=== PATIENT | male | born 1980 | race Caucasian/White ===

== ENCOUNTER → 2018-01-14 | Outpatient (CLI) | payer BC | LOC: RAD 08:13 | PROVIDERS: ATTEND Family Medicine | DX: M79.662 Pain in left lower leg (principal) | CPT/HCPCS: 93971 ==

== ENCOUNTER → 2018-08-30 | Outpatient (CLI) | payer BC | LOC: MRI 09:28 | PROVIDERS: ATTEND Family Medicine | DX: S39.012A Strain of muscle, fascia and tendon of lower back, initial encounter (principal); M51.26 Other intervertebral disc displacement, lumbar region ==

== ENCOUNTER 2018-11-15 17:15 | Emergency (ER) | payer BC ==
[~2018-11-15] VITALS: Ht 180.3 cm; Wt 138.8 kg
--- OUTSIDE RECORDS SUMMARY | 2018-11-15 17:18 | XMS REPORT ---
Author Author [facility] Address Unknown Phone Unavailable Care Team Providers Care Traffic Signal Mechanic Name Role Phone Unavailable Unavailable Problems This patient has no known problems. Allergies, Adverse Reactions, Alerts This patient has no known allergies or adverse reactions. Medications This patient has no known medications. Encounters Start Date/Time End Date/Time Encounter Type Admission Type Attending [facility] Facility Care Department Encounter ID 2018-08-31 17:17:05 Outpatient [id number]
[2018-11-15] MEDS ORDERED: SODIUM CHLORIDE 0.9% 1000ML 1,000 ML IV STA (17:48)
[2018-11-15 17:59] LABS: BASOPHILS # (AUTO) 0.1 (0.0-0.1); BASOPHILS % 0.6 % (0.0-1.0); EOSINOPHILS # (AUTO) 0.1 (0.0-0.4); EOSINOPHILS % 1.8 % (0.0-6.0); HEMATOCRIT 45.8 % (38.2-49.6); HEMOGLOBIN 15.7 g/dL (14.0-18.0); LYMPHOCYTES # (AUTO) 2.2 (1.0-3.2); LYMPHOCYTES % 27.7 % (18.0-39.1); MEAN CORPUSCULAR HEMOGLOBIN 29.6 pg (28-32); MEAN CORPUSCULAR HGB CONC 34.3 g/dL (31-35); MEAN CORPUSCULAR VOLUME 86.3 fL (81-99); MONOCYTES # (AUTO) 0.6 (0.2-0.8); MONOCYTES % 7.6 % (4.4-11.3); NEUTROPHILS # (AUTO) 4.9 (2.1-6.9); PLATELET COUNT 189 x10e3/uL (140-360); RED BLOOD COUNT 5.31 x10e6/uL (4.3-5.7); RED CELL DISTRIBUTION WIDTH 12.3 % (11.7-14.4)
[2018-11-15] MEDS ORDERED: METOCLOPRAMIDE HCL 10 MG/2ML VIAL IV ONE (18:00)
[2018-11-15] MEDS ORDERED: FAMOTIDINE 20 MG/2 ML VIAL IV ONE (18:00)
[2018-11-15] MEDS ORDERED: DEXAMETHASONE SOD PHOS 10 MG/1 ML VIAL IV ONE (18:00)
[2018-11-15] MEDS ORDERED: KETOROLAC TROMETHAMINE 30 MG/ML VIAL IV ONE (18:00)
[2018-11-15 18:17] LABS: ALANINE AMINOTRANSFERASE 69 IU/L (0-55); ALBUMIN 4.2 g/dL (3.5-5.0); ALBUMIN/GLOBULIN RATIO 1.2 (0.8-2.0); ALKALINE PHOSPHATASE 79 IU/L (40-150); ANION GAP 13.1 mmol/L (8-16); BLOOD UREA NITROGEN 14 mg/dL (7-26); BUN/CREATININE RATIO 11 (6-25); CALCIUM 9.2 mg/dL (8.4-10.2); CARBON DIOXIDE 27 mmol/L (22-29); CHLORIDE 103 mmol/L (98-107); CREATINE KINASE 94 IU/L (30-200); CREATININE, SERUM 1.29 mg/dL (0.72-1.25); EST GLOMERULAR FILTRATION RATE > 60 ML/MIN (60-); GLUCOSE 142 mg/dL (74-118); POTASSIUM 4.1 mmol/L (3.5-5.1); SODIUM 139 mmol/L (136-145)
--- NOTE | 2018-11-15 18:20 | NUR ---
PT BROUGHT TO ROOM 11 VIA W/C BY BOARD ATTENDANT, AMBULATORY WITH STEADY GAIT, NO DEFICITS NOTED, BREATHING EVEN/UNLABORED, NON-DIAPHORETIC; UPDATED ON CURRENT PLAN OF CARE, INFORMED ON NEED TO OBTAIN URINE SPECIMEN, STATES "I JUST PEED BEFORE I GOT HERE", NO NEEDS VOICED AT THIS TIME; BED LOW/LOCKED, CALL LIGHT IN EASY REACH, WILL CONTINUE TO MONITOR.
--- NOTE | 2018-11-15 18:45 | Diagnostic Imaging Report ---
Exam: Head CT without contrast History: Headache Comparison studies: None Technique: Axial images were obtained from the skull base to the vertex. Coronal and sagittal images reconstructed from the axial data. Dose modulation, iterative reconstruction, and/or weight based adjustment of the mA/kV was utilized to reduce the radiation dose to as low as reasonably achievable. Radiation dose: Total DLP: 921 mGy*cm. Estimated effective dose: DLP x 0.015 Intravenous contrast: None Findings: Beam hardening and streak artifact from the skull base somewhat limit evaluation of the posterior fossa and inferior temporal lobes. Scalp: No abnormalities. Bones: No fractures, blastic or lytic lesions. Brain sulci: Appropriate for age. Ventricles: Normal in size and configuration. No hydrocephalus. Incidental anatomical variant cavum septum pellucid and cavum vergae. Extra-axial spaces: No masses, no fluid collection. Parenchyma: No abnormal densities. No masses, acute hemorrhage, acute or chronic vascular insults. Sellar/suprasellar region: No abnormalities. Craniocervical junction: Patent foramen magnum. No Chiari one malformation. Incidental findings: Subtle increased density in the basilar artery may be artifact. IMPRESSION: 1. Subtle increased density in the basilar artery may be artifactual. If there is clinical concern for basilar artery thrombosis, intracranial CTA or MRA could further evaluate. 2. Otherwise, no acute intracranial abnormalities. Signed by: Dr. Rob Muniz M.D. on 11/15/2018 6:41 PM
[2018-11-15 19:28] LABS: BILIRUBIN,URINE NEGATIVE (NEGATIVE); CLARITY,URINE CLEAR (CLEAR); COLOR,URINE YELLOW (YELLOW); KETONES,URINE NEGATIVE (NEGATIVE); LEUKOCYTE ESTERASE ,URINE NEGATIVE (NEGATIVE); NITRITE,URINE NEGATIVE (NEGATIVE); PROTEIN,URINE DIPSTICK NEGATIVE (NEGATIVE); URINE UROBILINOGEN 0.2 mg/dL (0.2 - 1)
[2018-11-15 19:39] LABS: BACTERIA,URINE FEW /HPF
--- NOTE | 2018-11-15 21:32 | Diagnostic Imaging Report ---
History:Left-sided headache, high blood pressure, rule out thrombosis. Comparison studies:No direct comparison, compared with CT brain from 11/15/2018. Technique: Axial images were obtained from the skull base to the vertex. Coronal and sagittal images reconstructed from the axial data. Multi-planar and 3-D reconstructed images were obtained. Dose modulation, iterative reconstruction, and/or weight based adjustment of the mA/kV was utilized to reduce the radiation dose to as low as reasonably achievable. Intravenous contrast: 100 cc of Isovue 370. Findings: Internal carotid arteries: No abnormality in the distal internal carotid, anterior and middle cerebral arteries. Vertebral arteries: Patent, no abnormality. Basilar artery: Mild irregularity in the caliber of the proximal basilar artery due to atherosclerosis without significant stenosis. No focal thrombosis. Posterior cerebral arteries: Patent. Anatomical variants: Anterior communicating artery :Not well visualized. Posterior communicating arteries: Not visualized. Vertebral arteries: Codominant. IMPRESSION: Mild luminal irregularity in the proximal basilar artery due to atherosclerosis without significant stenosis or focal thrombosis. Otherwise, no intracranial vascular abnormality. Signed by: Dr. Demi Borjas M.D. on 11/15/2018 9:29 PM
[2018-11-15 22:07] VITALS: BP 124/77
[2018-11-15] MEDS ORDERED: SODIUM CHLORIDE 0.9% 100 ML 100 ML ONE (22:26)
[2018-11-15] MEDS ORDERED: IOPAMIDOL 370 MG/ML 200 ML INFUS..BTL INJ ONE (22:26)
== END 2018-11-15 22:12 | disposition home or self-care (01) ==
LOC: ER 17:15
DX: G44.209 Tension-type headache, unspecified, not intractable (principal); I65.1 Occlusion and stenosis of basilar artery; I10 Essential (primary) hypertension; E78.5 Hyperlipidemia, unspecified; E66.9 Obesity, unspecified; Z68.41 Body mass index [BMI] 40.0-44.9, adult
CPT/HCPCS: 36415; 70450; 70496; 80053; 81001; 82550; 82553; 84484; 85025; 85651; 93005; 99284; J1100; J1885; J2765; J7030; Q9967

== ENCOUNTER → 2020-04-10 | Outpatient (CLI) | payer BC ==
[~2020-04-10] MED LIST: DIATRIZOATE MEGL/DIATRIZOA SOD 30 ML BTL PO ONE; IOPAMIDOL 370 MG/ML 200 ML INFUS..BTL INJ ONE; SODIUM CHLORIDE 0.9% 50ML 50 ML ONE
[2020-04-10 16:37] LABS: BLOOD UREA NITROGEN 12 mg/dL (7-26); BUN/CREATININE RATIO 10 (6-25); CREATININE, SERUM 1.17 mg/dL (0.72-1.25); EST GLOMERULAR FILTRATION RATE > 60 ML/MIN (60-)
== END ==
LOC: CT 15:33
PROVIDERS: ATTEND Surgery
DX: K62.5 Hemorrhage of anus and rectum (principal); L29.0 Pruritus ani; R10.9 Unspecified abdominal pain
CPT/HCPCS: 36415; 74177; 82565; 84520; Q9967

== ENCOUNTER → 2024-08-18 | Outpatient (REF) | payer BC ==
[~2024-08-18] MED LIST changes: +BYSTOLIC10 MG PO; -DIATRIZOATE MEGL/DIATRIZOA SOD 30 ML BTL PO ONE; +FIBER PO; +FISH OIL 1,001000 M1 PO; -IOPAMIDOL 370 MG/ML 200 ML INFUS..BTL INJ ONE; +OMEPRAZOLE40 MG PO; +ROSUVASTATIN CAL5 MG PO; -SODIUM CHLORIDE 0.9% 50ML 50 ML ONE
== END ==
LOC: US 09:00
PROVIDERS: ATTEND Nurse Practitioner
DX: R10.10 Upper abdominal pain, unspecified (principal)
CPT/HCPCS: 76700

== ENCOUNTER → 2024-08-18 | Outpatient (REF) | payer BC | LOC: RAD 09:08 → EDSTATUS 08-29 13:30 | PROVIDERS: ATTEND Internal Medicine Gastroenterology | DX: Z01.818 Encounter for other preprocedural examination (principal); R10.13 Epigastric pain; K44.9 Diaphragmatic hernia without obstruction or gangrene; R14.2 Eructation | CPT/HCPCS: 93005 ==